=== PATIENT | male | born 1990 | race Caucasian/White ===

== ENCOUNTER 2021-09-06 11:01 | Emergency (ER) | payer OTHER ==
[~2021-09-06] VITALS: Ht 182.9 cm; Wt 65.0 kg
[2021-09-06 11:03] VITALS: BP 153/83
[2021-09-06] MEDS ORDERED: CLIN300C70 PO (11:07)
[2021-09-06] MEDS ORDERED: IBUP-1984 PO (11:08)
== END 2021-09-06 11:19 | disposition home or self-care (01) ==
LOC: ER 11:02
DX: L03.211 Cellulitis of face (principal); K02.9 Dental caries, unspecified; K04.7 Periapical abscess without sinus; K08.89 Other specified disorders of teeth and supporting structures; Z79.2 Long term (current) use of antibiotics; Z79.899 Other long term (current) drug therapy
CPT/HCPCS: 99283